=== PATIENT | male | born 1995 | race Two or more races ===

== ENCOUNTER 2017-03-30 00:10 | Emergency (ER) | payer MEDICAID, OTHER ==
[~2017-03-30] VITALS: Ht 188 cm; Wt 81.6 kg
[2017-03-30 00:21] VITALS: BP 142/94
[2017-03-30] MEDS ORDERED: CLINDAMYCIN HCL 150 MG CAPSULE PO ONE ×2 (00:47→01:00)
[2017-03-30] MEDS ORDERED: TDAP [DIPH/PERTUSSIS/TET] 0.5 ML VIAL IM ONE ×2 (00:47→01:00)
== END 2017-03-30 01:10 | disposition home or self-care (01) ==
LOC: ER 00:14
DX: L02.214 Cutaneous abscess of groin (principal); Z23 Encounter for immunization
CPT/HCPCS: 10060; 90471; 90715; 99283; A4606; Z7610